=== PATIENT | female | born 1985 | race Caucasian/White ===

== ENCOUNTER 2017-07-22 10:23 | Emergency (ER) | payer BC ==
[~2017-07-22] VITALS: Ht 157.5 cm; Wt 61.5 kg
[2017-07-22 10:28] VITALS: BP 133/89
== END 2017-07-22 11:14 | disposition home or self-care (01) ==
LOC: ER 10:24
DX: R20.0 Anesthesia of skin (principal); R20.2 Paresthesia of skin
CPT/HCPCS: 99281

== ENCOUNTER 2017-09-29 15:35 | Emergency (ER) | payer BC ==
[~2017-09-29] VITALS: Ht 160 cm; Wt 63.0 kg
[2017-09-29 15:41] VITALS: BP 128/84
== END 2017-09-29 16:32 | disposition home or self-care (01) ==
LOC: ER 15:36
DX: G89.18 Other acute postprocedural pain (principal)
CPT/HCPCS: 99281

== ENCOUNTER 2019-06-04 12:26 | Emergency (ER) | payer BC ==
[~2019-06-04] VITALS: Ht 157.5 cm; Wt 68.4 kg
[2019-06-04] MEDS ORDERED: iohexol 350MG/ML 100ml bottle IV ONE (14:18)
[2019-06-04 14:23] LABS: BASOPHILS % (AUTO) 0.7 % (0-1); EOSINOPHILS % (AUTO) 0.5 % (0-6); HEMATOCRIT 40.5 % (35.0-45.0); LYMPHOCYTES # (AUTO) 1.5 X10'3 (1.1-4.8); LYMPHOCYTES % (AUTO) 26.1 % (21-51); MEAN CORPUSCULAR HEMOGLOBIN 30.9 PG (27.0-31.0); MEAN CORPUSCULAR HGB CONC 34.6 g/dL (33.0-36.5); MEAN CORPUSCULAR VOLUME 89.3 FL (78-98); MEAN PLATELET VOLUME 8.9 FL (7.4-10.4); MONOCYTES # (AUTO) 0.4 X10'3 (0-0.9); MONOCYTES % (AUTO) 6.4 % (2-12); NEUTROPHILS # (AUTO) 3.7 X10'3 (1.8-7.7); NEUTROPHILS % (AUTO) 66.3 % (42-75); PLATELET COUNT 272 X10'3 (140-440); RED BLOOD COUNT 4.53 X10'6 (4.20-5.60); RED CELL DISTRIBUTION WIDTH 12.6 % (11.5-14.5); WHITE BLOOD COUNT 5.6 X10'3 (4.5-11.0)
[2019-06-04 14:30] LABS: ALBUMIN 4.2 G/DL (3.4-5.0); ANION GAP 5 (8-16); BLOOD UREA NITROGEN 12 MG/DL (7-18); BUN/CREATININE RATIO 13.8 (6.6-38.0); CHLORIDE 105 MMOL/L (99-107); CREATININE 0.87 MG/DL (0.40-0.90); GLUCOSE 94 MG/DL (70-104); POTASSIUM 3.7 MMOL/L (3.5-5.1); SODIUM 139 MMOL/L (135-145); TOTAL CARBON DIOXIDE 29.4 MMOL/L (24-32); eGFR 75 ML/MIN
[2019-06-04 15:08] LABS: HCG SERUM QL NEGATIVE
[2019-06-04 15:48] VITALS: BP 118/81
== END 2019-06-04 15:50 | disposition home or self-care (01) ==
LOC: ER 12:27
DX: R42 Dizziness and giddiness (principal); R51 Headache; Z98.890 Other specified postprocedural states
CPT/HCPCS: 36415; 70496; 80048; 84703; 85025; 85651; 99284; Q9967

== ENCOUNTER 2019-08-18 14:34 | Emergency (ER) | payer BC ==
[~2019-08-18] VITALS: Ht 157.5 cm; Wt 70.0 kg
[2019-08-18 16:56] VITALS: BP 126/86
== END 2019-08-18 16:57 | disposition home or self-care (01) ==
LOC: ER 14:35
DX: R07.89 Other chest pain (principal); R06.02 Shortness of breath; Z98.890 Other specified postprocedural states
CPT/HCPCS: 36415; 71045; 84484; 93005; 99285

== ENCOUNTER 2020-04-23 13:30 | Emergency (ER) | payer BC ==
[~2020-04-23] VITALS: Ht 160 cm; Wt 73.0 kg
[2020-04-23 14:34] LABS: CLARITY,URINE CLEAR (Clear); COLOR,URINE YELLOW (Yellow); GLUCOSE, URINE NEGATIVE (Neg); KETONES,URINE NEGATIVE (Neg); LEUKOCYTE ESTERASE ,URINE NEGATIVE (Neg); NITRITES, URINE NEGATIVE (Neg); OCCULT BLOOD,URINE NEGATIVE (Neg); PH,URINE 6.5 (4.8-8.0); PROTEIN,URINE NEGATIVE (Neg); UROBILINOGEN,URINE 0.2 E.U/dL (0.2-1.0)
[2020-04-23 14:35] LABS: URINE HCG NEGATIVE (NEG)
[2020-04-23 14:36] LABS: UA COLLECTION TYPE CLN CATCH MIDSTREAM
[2020-04-23 14:37] LABS: BASOPHILS # (AUTO) 0.1 X10'3 (0-0.2); BASOPHILS % (AUTO) 0.8 % (0-1); EOSINOPHILS % (AUTO) 0.3 % (0-6); HEMOGLOBIN 13.4 g/dl (12.0-16.0); LYMPHOCYTES # (AUTO) 1.4 X10'3 (1.1-4.8); LYMPHOCYTES % (AUTO) 19.7 % (21-51); MEAN CORPUSCULAR HEMOGLOBIN 30.9 PG (27.0-31.0); MEAN CORPUSCULAR HGB CONC 34.4 g/dL (33.0-36.5); MEAN CORPUSCULAR VOLUME 89.8 FL (78-98); MEAN PLATELET VOLUME 9.7 FL (7.4-10.4); MONOCYTES # (AUTO) 0.5 X10'3 (0-0.9); MONOCYTES % (AUTO) 7.1 % (2-12); NEUTROPHILS # (AUTO) 4.9 X10'3 (1.8-7.7); NEUTROPHILS % (AUTO) 72.1 % (42-75); PLATELET COUNT 229 X10'3 (140-440); RED BLOOD COUNT 4.34 X10'6 (4.20-5.60); RED CELL DISTRIBUTION WIDTH 13.3 % (11.5-14.5); WHITE BLOOD COUNT 6.9 X10'3 (4.5-11.0)
[2020-04-23 14:47] LABS: ALANINE AMINOTRANSFERASE 27 U/L (12-78); ALBUMIN 4.1 G/DL (3.4-5.0); ALBUMIN/GLOBULIN RATIO 1.1 (1.1-1.5); ALKALINE PHOSPHATASE 56 IU/L (46-116); ANION GAP 6 (8-16); ASPARTATE AMINO TRANSFERASE 14 U/L (10-37); BILIRUBIN,TOTAL 1.1 MG/DL (0.1-1.0); BLOOD UREA NITROGEN 10 MG/DL (7-18); BUN/CREATININE RATIO 11.4 (6.6-38.0); CALCIUM 9.1 MG/DL (8.5-10.1); CHLORIDE 104 MMOL/L (99-107); CREATININE 0.88 MG/DL (0.40-0.90); GLUCOSE 111 MG/DL (70-104); LIPASE 118 U/L (73-393); POTASSIUM 3.7 MMOL/L (3.5-5.1); SODIUM 137 MMOL/L (135-145); TOTAL CARBON DIOXIDE 27.2 MMOL/L (24-32); TOTAL PROTEIN 7.7 G/DL (6.4-8.2); eGFR 73 ML/MIN
[2020-04-23 16:12] VITALS: BP 143/104
== END 2020-04-23 16:15 | disposition home or self-care (01) ==
LOC: ER 13:31
DX: N83.291 Other ovarian cyst, right side (principal); R10.84 Generalized abdominal pain; R11.0 Nausea; Z98.890 Other specified postprocedural states; Z72.89 Other problems related to lifestyle
CPT/HCPCS: 36415; 76856; 80053; 81003; 81025; 83690; 85025; 93976; 99284

== ENCOUNTER 2020-08-13 09:18 | Emergency (ER) | payer BC, OTHER ==
[~2020-08-13] VITALS: Ht 157.5 cm; Wt 66.0 kg
[2020-08-13] MEDS ORDERED: dexamethasone sod phosphate 10mg/ml inj IM STA (10:11)
[2020-08-13] MEDS ORDERED: ketorolac trometh inj. 60 MG/2 ML VIAL IM ONE (10:15)
[2020-08-13 10:29] VITALS: BP 148/78
== END 2020-08-13 11:07 | disposition home or self-care (01) ==
LOC: ER 09:18
DX: R51.9 Headache, unspecified (principal); R11.0 Nausea; Z72.89 Other problems related to lifestyle; Z98.890 Other specified postprocedural states
CPT/HCPCS: 96372; 99284; J1100; J1885

== ENCOUNTER 2020-08-16 21:44 | Emergency (ER) | payer OTHER ==
[~2020-08-16] VITALS: Ht 162.6 cm; Wt 71.2 kg
[2020-08-16 23:00] VITALS: BP 133/93
== END 2020-08-16 23:01 | disposition home or self-care (01) ==
LOC: ER 21:44
DX: R51.9 Headache, unspecified (principal); R20.0 Anesthesia of skin; R03.0 Elevated blood-pressure reading, without diagnosis of hypertension; H53.19 Other subjective visual disturbances; Z72.89 Other problems related to lifestyle
CPT/HCPCS: 94760; 99281